=== PATIENT | female | born 2000 | race Caucasian/White ===

== ENCOUNTER 2025-08-15 16:03 | Day surgery (SDC) | payer OTHER ==
[2025-08-15 16:50] VITALS: BMI 30.5
== END 2025-08-15 17:55 | disposition home or self-care (01) ==
LOC: CSHLD/OP 16:03
PROVIDERS: ATTEND Obstetrics & Gynecology
DX: O99.891 Other specified diseases and conditions complicating pregnancy (principal); N89.8 Other specified noninflammatory disorders of vagina; O99.342 Other mental disorders complicating pregnancy, second trimester; F41.9 Anxiety disorder, unspecified; Z3A.21 21 weeks gestation of pregnancy; Z79.899 Other long term (current) drug therapy
CPT/HCPCS: 87480; 87510; 87660